=== PATIENT | female | born 1980 | race African-American/Black ===

== ENCOUNTER 2024-07-01 13:17 | Emergency (ER) | payer BC, OTHER ==
[~2024-07-01] VITALS: Ht 165.1 cm; Wt 104.2 kg
[~2024-07-01 13:17] MED LIST: ACET500T58 PO; AUG875T PO; PSEU120T2 PO
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
--- NOTE | 2024-07-01 16:03 | DVH ---
CHEST RADIOGRAPH Indication: sob Technique: Single frontal view of the chest was obtained Comparison: None FINDINGS: Lines and Tubes: None Lungs: No focal consolidation. Pleura: No effusion.No pneumothorax. Cardiomediastinal contours: Unremarkable Pulmonary vasculature: Within normal limits. Bones: No acute osseous abnormality. Fusion hardware in the cervical spine. IMPRESSION: 1. No acute cardiopulmonary disease. HS:Y
[2024-07-01 16:24] LABS: Basophils # (auto) 0 10 ^3/uL (0-0.2); Basophils % (auto) 0.6 % (0.0-2.0); Eosinophils # (auto) 0.2 10 ^3/uL (0-0.8); Hematocrit 39.1 % (36.0-46.0); Hemoglobin 12.8 g/dL (12.2-16.2); Lymphocytes % (auto) 27.5 % (10.0-50.0); Mean Corpuscular Hemoglobin 29.1 pg (28.0-32.0); Mean Corpuscular Hgb Conc. 32.6 g/dL (32.0-36.0); Mean Corpuscular Volume 89.2 fL (80.0-100.0); Monocytes # (auto) 0.7 10 ^3/uL (0-1.3); Monocytes % (auto) 10.1 % (0.0-12.0); Neutrophils # (auto) 4.3 10 ^3/uL (1.6-8.6); Neutrophils % (auto) 58.8 % (37.0-80.0); Nucleated Red Blood Cells % 0.1 %; Platelet Count (auto) 238 10^3/uL (140-450); Red Blood Cells 4.39 10^6/uL (4.0-5.20); Red Cell Distribution Width 12.9 % (11.8-14.3); White Blood Cell 7.3 10^3/uL (4.4-10.8)
[2024-07-01 16:35] LABS: Anion Gap 5 (5-15); Carbon Dioxide 26 mmol/L (20-31); Chloride 107 mmol/L (98-107); Potassium 4.4 mmol/L (3.5-5.1); Sodium 138 mmol/L (136-145)
[2024-07-01 16:36] LABS: Calcium 9.6 mg/dL (8.7-10.4)
[2024-07-01 16:41] LABS: BUN/Creatinine Ratio 14.9 (10.0-20.0); Blood Urea Nitrogen 11 mg/dL (9-23); Glucose 95 mg/dL (74-106)
[2024-07-01 19:07] LABS: Urine Bacteria None Seen /hpf (None Seen)
[2024-07-01 19:16] VITALS: BP 162/78; TEMP 97.9
[2024-07-01 19:21] LABS: Urine Blood 3+ /uL (Negative); Urine Clarity Clear (Clear); Urine Color Yellow (Yellow); Urine Mucus FEW (None Seen); Urine Protein, UAD 1+ (Negative); Urine Specific Gravity 1.035 (1.001-1.035); Urine Urobilinogen 4 mg/dL (Negative); Urine WBC 2 /hpf (0 - 5)
[2024-07-01 19:30] VITALS: PULSE 62; RESP 18; O2SAT 99
== END 2024-07-01 19:55 | disposition left against medical advice (07) ==
LOC: ER 13:17
DX: I16.1 Hypertensive emergency (principal); R07.89 Other chest pain; Z79.899 Other long term (current) drug therapy
CPT/HCPCS: 36415; 71045; 80048; 81001; 84484; 85025; 85379

== ENCOUNTER 2024-12-12 08:28 | Emergency (ER) | payer BC, OTHER ==
[~2024-12-12] VITALS: Ht 165.1 cm; Wt 106.1 kg
--- NOTE | 2024-12-12 09:00 | ED.PDOC ---
History of Present Illness HPI Comments 44-year-old female presents to the ER with prior surgical history of knee surgery and chief complaining of abdominal pain. Patient reports on initially having cramps in the right lower quadrant of the abdomen but has worsened into sharp right lower quadrant pain. Patient state on having pain during urination with also pressure to the rectal area two days ago. Denies chills, fever, N/V/D, SOB, CP. No other associated symptoms, modifiers, recent injuries or sick contacts present at this time. Time Seen by MD: 08:50 Primary Care Provider: UNKNOWN Reviewed Notes: Nurses Notes, Medications, Allergies Allergies: Coded Allergies: NO KNOWN ALLERGIES (Unverified , 10/12/23) Home Meds Active Scripts Cephalexin (KEFLEX CAPSULE) 250 Mg Cp, 250 MG PO QID for 5 Days, #20 BOTTLE Prov:SAY DAWN MD 12/12/24 Acetaminophen (Acetaminophen) 500 Mg Tab, 500 MG PO QIDPRN for 14 Days, #56 TAB 0 Refills Prov:KARINA ALCANTARA NP 10/12/23 Pseudoephedrine (Sudafed 12 Hour) 120 Mg Tab, 1 TAB PO BID for 30 Days, #60 TAB 0 Refills Prov:KARINA ALCANTARA NP 10/12/23 Amoxicillin & Pot Clavulanate (AUGMENTIN TABLET) 875 Mg Tb, 875 MG PO BID for 5 Days, #10 TAB 0 Refills Prov:KARINA ALCANTARA NP 10/12/23 Information Source: Patient Mode of Arrival: Ambulatory Severity: Moderate Timing: Days Duration: Since onset, Days Prehospital treatment: None Past Medical History PAST MEDICAL HISTORY: Denies Surgical History (Other): Knee surgery DATA ANALYST History: No Pertinent DATA ANALYST History Family History Family History: Reviewed,noncontributory to illness, Unknown Social History Smoker: Non-Smoker Alcohol: Denies ETOH Use Drugs: Denies Drug Use Lives In: Home Constitutional: denies: chills, diaphoresis, fatigue, fever, malaise, sweats, weakness, others EENTM: denies: blurred vision, double vision, ear bleeding, ear discharge, ear drainage, ear pain, ear ringing, eye pain, eye redness, hearing loss, mouth pain, mouth swelling, nasal discharge, nose bleeding, nose congestion, nose pain, photophobia, tearing, throat pain, throat swelling, voice changes, others Respiratory: denies: cough, hemoptysis, orthopnea, SOB at rest, shortness of breath, SOB with excertion, stridor, wheezing, others Cardiovascular: denies: chest pain, dizzy spells, diaphoresis, Dyspnea on exertion, edema, irregular heart beat, left arm pain, lightheadedness, palpitations, PND, syncope, others Gastrointestinal: reports: abdominal pain; denies: abdomen distended, blood streaked bowels, constipated, diarrhea, dysphagia, difficulty swallowing, hematemesis, melena, nausea, poor appetite, poor fluid intake, rectal bleeding, rectal pain, vomiting, others Genitourinary: reports: burning; denies: abnormal vagina bleeding, dyspareunia, dysuria, flank pain, frequency, hematuria, incontinence, pain, , vagina discharge, urgency, others Neurological: denies: dizziness, fainting, headache, left sided numbness, left sided weakness, numbness, paresthesia, pre-existing deficit, right sided numbness, right sided weakness, seizure, speech problems, tingling, tremors, weakness, others Musculoskeletal: denies: back pain, gout, joint pain, joint swelling, muscle pain, muscle stiffness, neck pain, others Integumetry: denies: bruises, change in color, change in hair/nails, dryness, laceration, lesions, lumps, rash, wounds, others Allergic/Immunocompromised: denies: Difficulty Healing, Frequent Infections, Hives, Itching, others Hematologic/Lymphatic: denies: anemia, blood clots, easy bleeding, easy bruisin g, swollen glands, others Endocrine: denies: excessive hunger, excessive sweating, excessive thirst, excessive urination, flushing, intolerance to cold, intolerance to heat, unexplained weight gain, unexplained weight loss, others Psychiatric: denies: anxiety, bipolar disorder, depression, hopeless, panic disorder, schizophrenia, sleepless, suicidal, others All Other Systems: Reviewed and Negative Physical Exam General Appearance: Moderate Distress, Normal HEENT: Normal ENT Inspection, Pharynx Normal, TMs Normal Neck: Full Range of Motion, Non-Tender, Normal, Normal Inspection Respiratory: Chest Non-Tender, Lungs Clear, No Accessory Muscle Use, No Respiratory Distress, Normal Breath Sounds Cardiovascular: No Edema, No JVD, No Murmur, No Gallop, Normal Peripheral Pulses, Regular Rate/Rhythm Breast Exam: Deferred Gastrointestinal: No Organomegaly, Non Tender, No Pulsatile Mass, Normal Bowel Sounds, Soft Genitalia: Deferred Pelvic: Deferred Rectal: Deferred Extremities: No calf tenderness, Normal capillary refill, Normal inspection, Normal range of motion, Non-tender, No pedal edema Musculoskeletal : Apperance: Normal Neurologic: Alert, food production manager II-XII nml as Tested, No Motor Deficits, Normal Affect, Normal Mood, No Sensory Deficits Cerebellar Function: Normal Reflexes: Normal Skin: Dry, Normal Color, Warm Peripheral Pulses: 3+ Radial (R), 3+ Radial (L) Lymphatic: No Adenopathy Was a procedure done? Was a procedure done?: No Differential Dx Considerations may include: Urinary tract infection Musculoskeletal pain X-Ray, Labs, Meds, VS Vital Signs Date Time Temp Pulse Resp B/P (MAP) Pulse Ox O2 Delivery O2 Flow Rate FiO2 12/12/24 10:46 98.2 62 21 152/97 (115) 98 98.2 12/12/24 10:46 62 21 98 Room Air 12/12/24 08:28 99.0 73 17 149/86 (107) 97 99.0 Lab Test 12/12/24 08:50 Range/Units Urine Color Yellow Yellow Urine Clarity Clear Clear Urine pH 6.5 5.0-9.0 Urine Specific Foreman 1.034 1.001-1.035 Urine Protein Trace H Negative Urine Ketones Negative Negative Urine Blood Negative Negative /uL Urine Nitrite Negative Negative Urine Bilirubin Negative Negative Urine Urobilinogen 3 H Negative mg/dL Urine Leukocyte Esterase Negative Negative /uL Urine RBC 2 0 - 4 /hpf Urine Microscopic WBC 1 0-5 /HPF Urine Squamous Epithelial Cells None seen <5 /hpf Urine Bacteria None seen None Seen /hpf Urine Mucus Few None Seen Urine Glucose Normal Normal mg/dL Current Medications Medications (Trade) Dose Ordered Sig/Celi Route Start Time Stop Time Status Last Admin Acetaminophen/ Hydrocodone Bitart ([place] 10/325MG Tab) 1 tab ONCE ONCE PO 12/12/24 09:30 12/12/24 09:31 DC 12/12/24 09:36 Patient alert. Vitals stable. No sign of distress. Answering questions. Abdomen is soft nontender. Ambulating without difficulty. Good skin color. No sign of sepsis. Heart rate within normal limits. Saturation pristine on room air. Physical examination pristine. CT scan of the abdomen was not done because physical examination was within normal limits. Urinalysis shows WBC. Possible early UTI. Was given prescription of Keflex antibiotic. Explained to the patient. Was told to follow up with her primary care physician. Was told to come back if there is any problem. Time of 1ST Reevaluation: 09:20 Reevaluation 1ST: Improved Patient Education/Counseling: Diagnosis, Treatment, Prognosis Family Education/Counseling: No Family Present Departure 1 Departure Time of Disposition: :28 Impression: Primary Impression: Urinary tract infection Qualified Codes: N30.00 - Acute cystitis without hematuria Additional Impression: Muscle strain Disposition: HOME / SELF CARE / HOMELESS Condition: Good e-Prescriptions Cephalexin (KEFLEX CAPSULE) 250 Mg Cp 250 MG PO QID for 5 Days, #20 BOTTLE Prov: SAY DAWN MD 12/12/24 Discharged With: Self Critical Care Note Critical Care Time?: No Stability Stability form required: No Heart Score Heart Score: Heart Score Response (Comments) Value History N/A 0 EKG N/A 0 Age N/A 0 Risk Factors N/A 0 Troponin N/A 0 Total 0 I personally scribed for SAY DAWN MD ([email or web address]) on 12/12/24 at 09:00. Electronically submitted by Rudy Davidson ([email or web address]). SAY DAWN MD Dec 12, 2024 09:00
[2024-12-12 09:06] LABS: Urine Bacteria None Seen /hpf (None Seen)
[2024-12-12 09:17] LABS: Urine Blood Negative /uL (Negative); Urine Clarity Clear (Clear); Urine Color Yellow (Yellow); Urine Mucus FEW (None Seen); Urine Protein, UAD TRACE (Negative); Urine Specific Gravity 1.034 (1.001-1.035); Urine Squamous Epithelial Cell None Seen /hpf (<5); Urine Urobilinogen 3 mg/dL (Negative); Urine WBC 1 /HPF (0-5); Urine pH 6.5 (5.0-9.0)
[2024-12-12] MEDS ORDERED: CEPH250C PO (09:29)
[2024-12-12] MEDS: HYDROcodone-ACET 10/325MG TAB PO ONE (09:36)
[2024-12-12 10:46] VITALS: BP 152/97; PULSE 62; RESP 21; TEMP 98.2; O2SAT 98
== END 2024-12-12 11:18 | disposition home or self-care (01) ==
LOC: ER 08:28
DX: T14.8XXA Other injury of unspecified body region, initial encounter (principal); N39.0 Urinary tract infection, site not specified; Z98.890 Other specified postprocedural states; Z79.899 Other long term (current) drug therapy; X58.XXXA Exposure to other specified factors, initial encounter; Y93.89 Activity, other specified; Y92.89 Other specified places as the place of occurrence of the external cause; Y99.8 Other external cause status
CPT/HCPCS: 81001

== ENCOUNTER 2024-12-30 18:15 | Emergency (ER) | payer BC ==
[~2024-12-30] VITALS: Ht 172.7 cm; Wt 107.4 kg
[~2024-12-30 18:15] MED LIST changes: +CEPH250C PO
[2024-12-30 18:16] VITALS: BP 146/91; PULSE 73; RESP 16; TEMP 97.5; O2SAT 96
[2024-12-30] MEDS ORDERED: DIP005TP EX (18:38)
--- NOTE | 2024-12-30 18:38 | ED.PDOC ---
History of Present Illness(SKN HPI Comments 44-year-old female Pt presents to ED with c/c of on and off rash since October. Admits to urticaria. Rash spreads from neck to abdomen to perineal area. Patient states follow up with her PCP in the past was prescribed Claritin in an unknown medication that begins with an IM she states no help with symptoms. Denies fever, chills, through swollen, difficulty breathing, chest pain, nausea or vomiting Chief Complaint: Rash Time Seen by MD: 18:23 Primary Care Provider: HUA History of Present Illness: Nurses Notes, Medications, Allergies Allergies: Coded Allergies: NO KNOWN ALLERGIES (Unverified , 10/12/23) Home Meds Active Scripts Betamethasone Dipropionate (Betamethasone Dipropionat) 0.05 % Cre, 1 APPLIC EX BID PRN for 14 Days, #15 GRAMS Prov:RAMY WILSON LOCOMOTIVE BOILERMAKER 12/30/24 Cephalexin (KEFLEX CAPSULE) 250 Mg Cp, 250 MG PO QID for 5 Days, #20 BOTTLE Prov:SAY DAWN MD 12/12/24 Acetaminophen (Acetaminophen) 500 Mg Tab, 500 MG PO QIDPRN for 14 Days, #56 TAB 0 Refills Prov:KARINA ALCANTARA NP 10/12/23 Pseudoephedrine (Sudafed 12 Hour) 120 Mg Tab, 1 TAB PO BID for 30 Days, #60 TAB 0 Refills Prov:KARINA ALCANTARA NP 10/12/23 Amoxicillin & Pot Clavulanate (AUGMENTIN TABLET) 875 Mg Tb, 875 MG PO BID for 5 Days, #10 TAB 0 Refills Prov:KARINA ALCANTARA NP 10/12/23 Past Medical History PAST MEDICAL HISTORY: Denies Surgical History: Denies all surgeries VENETIAN BLIND WASHER History: No Pertinent VENETIAN BLIND WASHER History Family History Family History: Reviewed,noncontributory to illness, Unknown Social History Smoker: Non-Smoker Alcohol: Denies ETOH Use Drugs: Denies Drug Use Lives In: Home Constitutional: denies: chills, diaphoresis, fatigue, fever, malaise, sweats, weakness, others EENTM: denies: blurred vision, double vision, ear bleeding, ear discharge, ear drainage, ear pain, ear ringing, eye pain, eye redness, hearing loss, mouth pain, mouth swelling, nasal discharge, nose bleeding, nose congestion, nose pain, photophobia, tearing, throat pain, throat swelling, voice changes, others Respiratory: denies: cough, hemoptysis, orthopnea, SOB at rest, shortness of breath, SOB with excertion, stridor, wheezing, others Cardiovascular: denies: chest pain, dizzy spells, diaphoresis, Dyspnea on exertion, edema, irregular heart beat, left arm pain, lightheadedness, palpitations, PND, syncope, others Gastrointestinal: denies: abdomen distended, abdominal pain, blood streaked bowels, constipated, diarrhea, dysphagia, difficulty swallowing, hematemesis, melena, nausea, poor appetite, poor fluid intake, rectal bleeding, rectal pain, vomiting, others Genitourinary: denies: abnormal vagina bleeding, burning, dyspareunia, dysuria, flank pain, frequency, hematuria, incontinence, pain, , vagina discharge, urgency, others Neurological: denies: dizziness, fainting, headache, left sided numbness, left sided weakness, numbness, paresthesia, pre-existing deficit, right sided numbness, right sided weakness, seizure, speech problems, tingling, tremors, weakness, others Musculoskeletal: denies: back pain, gout, joint pain, joint swelling, muscle pain, muscle stiffness, neck pain, others Integumetry: reports: rash; denies: bruises, change in color, change in hair/nails, dryness, laceration, lesions, lumps, wounds, others Allergic/Immunocompromised: denies: Difficulty Healing, Frequent Infections, Hives, Itching, others Hematologic/Lymphatic: denies: anemia, blood clots, easy bleeding, easy bruising, swollen glands, others Endocrine: denies: excessive hunger, excessive sweating, excessive thirst, excessive urination, flushing, intolerance to cold, intolerance to heat, unexplained weight gain, unexplained weight loss, others Psychiatric: denies: anxiety, bipolar disorder, depression, hopeless, panic disorder, schizophrenia, sleepless, suicidal, others Physical Exam General Appearance: No Apparent Distress, Normal HEENT: Pharynx Normal Neck: Full Range of Motion, Non-Tender Respiratory: Accessory Muscle Use, Chest Non-Tender, Lungs Clear, No Respiratory Distress, Normal Breath Sounds Cardiovascular: No Murmur, Normal Peripheral Pulses, Regular Rate/Rhythm Breast Exam: Deferred Gastrointestinal: Non Tender, Soft Genitalia: Deferred Pelvic: Deferred Rectal: Deferred Extremities: Normal range of motion Musculoskeletal : Apperance: Normal Neurologic: Alert, No Motor Deficits, Normal Affect, Normal Mood, No Sensory Deficits Cerebellar Function: Normal Reflexes: Normal Skin: Dry, Normal Color, Rash (Papular erythemic rash scattered diffusely excoriations open lesions no noted drainage), Warm Lymphatic: No Adenopathy Was a procedure done? Was a procedure done?: No Differential Diagnosis (INTG) Differential Diagnosis: Cellulitis Differential Diagnosis: Urticaria, Viral exanthema X-Ray, Labs, Meds, VS Vital Signs Date Time Temp Pulse Resp B/P (MAP) Pulse Ox O2 Delivery O2 Flow Rate FiO2 12/30/24 18:16 97.5 73 16 146/91 (109) 96 97.5 X-Ray, Labs, Meds, VS Comment Police secondary to patient's sweating it is likely heat rash. Based on physical exam and symptoms. We will start trial of steroid cream advised take medications as prescribed side effects discussed. Advised to use ice to the area, acosta powder in under garments that absorb sweat during the hot weather. Advised to follow up with her PCP 2-3 days as necessary ER return precautions given patient indicates understanding and agrees with discharge plan of care Time of 1ST Reevaluation: 18:15 Reevaluation 1ST: Unchanged Time of 2ND Reevaluation: 18:36 Reevaluation 2ND: Improved Patient Education/Counseling: Diagnosis, Treatment, Prognosis, Need For Follow Up Family Education/Counseling: No Family Present SEPSIS Sepsis Screen Vital Signs Date Time Temp Pulse Resp B/P (MAP) Pulse Ox O2 Delivery O2 Flow Rate FiO2 12/30/24 18:16 97.5 73 16 146/91 (109) 96 97.5 Departure 1 Departure Time of Disposition: 18:35 Impression: Primary Impression: Prickly heat Disposition: 01 HOME / SELF CARE / HOMELESS Condition: Stable e-Prescriptions Betamethasone Dipropionate (Betamethasone Dipropionat) 0.05 % Cre 1 APPLIC EX BID PRN for 14 Days, #15 GRAMS Prov: RAMY WILSON 12/30/24 Discharged With: Self Critical Care Note Critical Care Time?: No Stability Stability form required: RAMY Romero Dec 30, 2024 18:38
== END 2024-12-30 18:45 | disposition home or self-care (01) ==
LOC: ER 18:21
DX: L74.0 Miliaria rubra (principal)

== ENCOUNTER 2025-01-30 09:45 | Emergency (ER) | payer BC ==
[~2025-01-30] VITALS: Ht 165.1 cm; Wt 105.1 kg
--- NOTE | 2025-01-30 10:06 | ED.PDOC ---
Psychiatric HPI Comments 44 y/o F, with no prior psychiatric history presents to the ED for CC of mental health. Patient states, she has had increased stress at work d/t filling a complaint against her coworker resulting in her demotion and decline in mental health. Patient reports, since her complaint her job has retaliated against her causing her to be unable to eat or sleep. Patient states, "my health is deteriorating because of stress, I'm unable to do my daily activities, I want to take a break from work in order to rest". Patient endorses, wanting a psychiatric evaluation. Patient denies suicidal ideation, homicidal ideation, auditory hallucinations, or visual hallucinations. No other associated symptoms, modifiers, or recent injuries present at this time. Chief Complaint: Mental Health Time Seen by MD: 10:00 Primary Care Provider: HUA Jordan Notes: Nurses Notes, Medications, Allergies Information Source: Patient Severity: Able to Care for Self Severity of Pain: None Severity of Mental Status: Moderate Severity of Symptoms: Moderate Timing: Days Duration: Since onset Prehospital treatment: None Presents with: Depression Ingestion: None Circumstance: None Current substance abuse: None Stressors: Work History of: None Quality: None Location: None Location of pain or injury: None Associated signs and symptoms: Depression Past Medical History PAST MEDICAL HISTORY: HTN, Denies Surgical History: Denies all surgeries 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 Family History Family History: Reviewed,noncontributory to illness, Unknown Social History Smoker: Non-Smoker Alcohol: Denies ETOH Use Drugs: Denies Drug Use Lives In: Home Constitutional: denies: chills, diaphoresis, fatigue, fever, malaise, sweats, weakness, others EENTM: denies: blurred vision, double vision, ear bleeding, ear discharge, ear drainage, ear pain, ear ringing, eye pain, eye redness, hearing loss, mouth pain, mouth swelling, nasal discharge, nose bleeding, nose congestion, nose pain, photophobia, tearing, throat pain, throat swelling, voice changes, others Respiratory: denies: cough, hemoptysis, orthopnea, SOB at rest, shortness of breath, SOB with excertion, stridor, wheezing, others Cardiovascular: denies: chest pain, dizzy spells, diaphoresis, Dyspnea on exertion, edema, irregular heart beat, left arm pain, lightheadedness, palpitations, PND, syncope, others Gastrointestinal: denies: abdomen distended, abdominal pain, blood streaked bowels, constipated, diarrhea, dysphagia, difficulty swallowing, hematemesis, melena, nausea, poor appetite, poor fluid intake, rectal bleeding, rectal pain, vomiting, others Genitourinary: denies: abnormal vagina bleeding, burning, dyspareunia, dysuria, flank pain, frequency, hematuria, incontinence, pain, , vagina discharge, urgency, others Neurological: denies: dizziness, fainting, headache, left sided numbness, left sided weakness, numbness, paresthesia, pre-existing deficit, right sided numbness, right sided weakness, seizure, speech problems, tingling, tremors, weakness, others Musculoskeletal: denies: back pain, gout, joint pain, joint swelling, muscle pain, muscle stiffness, neck pain, others Integumetry: denies: bruises, change in color, change in hair/nails, dryness, laceration, lesions, lumps, rash, wounds, others Allergic/Immunocompromised: denies: Difficulty Healing, Frequent Infections, Hives, Itching, others Hematologic/Lymphatic: denies: anemia, blood clots, easy bleeding, easy bruising, swollen glands, others Endocrine: denies: excessive hunger, excessive sweating, excessive thirst, excessive urination, flushing, intolerance to cold, intolerance to heat, unexplained weight gain, unexplained weight loss, others Psychiatric: reports: anxiety, depression; denies: bipolar disorder, hopeless, panic disorder, schizophrenia, sleepless, suicidal, others All Other Systems: Reviewed and Negative Physical Exam General Appearance: Moderate Distress HEENT: Normal ENT Inspection, Pharynx Normal, TMs Normal Neck: Full Range of Motion, Non-Tender, Normal, Normal Inspection Respiratory: Chest Non-Tender, Lungs Clear, No Accessory Muscle Use, No Respiratory Distress, Normal Breath Sounds Cardiovascular: No Edema, No JVD, No Murmur, No Gallop, Normal Peripheral Pulses, Regular Rate/Rhythm Breast Exam: Deferred Gastrointestinal: No Organomegaly, Non Tender, No Pulsatile Mass, Normal Bowel Sounds, Soft Genitalia: Deferred Pelvic: Deferred Rectal: Deferred Extremities: No calf tenderness, Normal capillary refill, Normal inspection, Normal range of motion, Non-tender, No pedal edema Musculoskeletal : Apperance: Normal Neurologic: 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 Was a procedure done?: No Psych Differential Dx Psych. Differential Dx: Anxiety, Depression Intoxication Differential Dx: N/A X-Ray, Labs, Meds, VS Vital Signs Date Time Temp Pulse Resp B/P (MAP) Pulse Ox O2 Delivery O2 Flow Rate FiO2 01/30/25 10:15 98.3 73 17 182/99 (126) 100 98.3 01/30/25 09:45 98.3 73 17 169/108 (128) 100 98.3 Patient alert. Blood pressure elevated. Saturation pristine on room air. She is comfortable. She does have depression. Psychiatric evaluation. She is not taking her blood pressure medication. Anxious. Medically cleared. Denies suicidal or homicidal ideation. Explained to the patient. Continue to monitor. Time of 1ST Reevaluation: 10:30 Reevaluation 1ST: Improved Patient Education/Counseling: Diagnosis, Treatment Family Education/Counseling: No Family Present Departure 1 Departure Time of Disposition: 11:29 Impression: Primary Impression: Hypertensive urgency Additional Impression: Anxiety Disposition: 30 STILL A PATIENT Condition: Good Discharged With: Self Critical Care Note Critical Care Time?: No Stability Stability form required: No Heart Score Heart Score: Heart Score Response (Comments) Value History N/A 0 EKG N/A 0 Age N/A 0 Risk Factors N/A 0 Troponin N/A 0 Total 0 I personally scribed for SAY DAWN MD ([email or web address]) on 01/30/25 at 10:06. Electronically submitted by Felicita Le ([email or web address]). I personally scribed for SAY DAWN MD ([email or web address]) on 01/30/25 at 10:12. Electronically submitted by Felicita Le ([email or web address]). I personally scribed for SAY DAWN MD ([email or web address]) on 01/30/25 at 10:28. Electronically submitted by Felicita Le ([email or web address]). SAY DAWN MD Jan 30, 2025 10:06
--- NOTE | 2025-01-30 12:42 | DVHINCON2 ---
Date of Service if different f: Jan 30, 2025 Time of Service: 12:41 Consultation ([facility]) Vitals Vital Signs Date Time Temp Pulse Resp B/P (MAP) Pulse Ox O2 Delivery O2 Flow Rate FiO2 01/30/25 12:08 Room Air* 0 21 01/30/25 10:15 98.3 73 17 182/99 (126) 100 98.3 PSYCHIATRY CONSULTATION INITIAL EVALUATION REASON FOR CONSULT: Depressed, work stress. Is patient safe to discharge? HPI: 44yo W who presents to the ED voluntarily after going to a crisis center, then being told to come to the ED. Pt told the ED MD that she has been experiencing depressed mood due retaliation at work (getting extra work, was demoted). Pt also c/o diminished appetite, sleep disturbance. She denies SI, HI, hallucinations. Pt says she is making it. She was referred to the ED from [facility]. Pt is trying to get certified for SDI. She says things are getting worse due to work stress. Whenever she thinks about work, she gets worked up, anxious. This has been going on since November. Pt also says her blood pressure has been elevating. In addition to the above symptoms, pt c/o diminished energy and concentration, is having trouble getting things done at work. She reports guilt, embarrassment. She questions if something is wrong with her given she is usually able to work well. She complains of anxiety. Pt has a high priority position, fears she will make a grave mistake that will adversely impact her company. Pt denies SI, HI currently. She denies any history of SI, self-harm or suicide. She does have a ccess to a firearm. No family history of mental illness or suicide. Pt says she can keep herself safe if she is discharged. She is open to getting treatment. PSYCHIATRIC HISTORY: DIAGNOSIS: None prior ADMISSIONS: None prior MEDICATION TRIALS: None prior OUTPATIENT CARE: None prior THERAPY: Has had therapy in the past, last in [employer]. SI/SELF-INJURY/SUICIDE ATTEMPT: None prior SUBSTANCE USE: Drinks about twice a week. Uses cannabis daily, hopes to stop. RELEVANT MEDICAL HISTORY: HTN SOCIAL HISTORY: Graduated college. In relationship. No children. Lives alone with pup. ALLERGIES: None MENTAL STATUS EXAMINATION: Patient is appropriately groomed and dressed. Behavior is cooperative and calm, with no evidence of psychomotor agitation or retardation. Speech is normal in rate, tone, and volume. Mood is described as "stressed and anxious," and affect is congruent, anxious, and mildly constricted. Thought processes are linear, logical, and goal-directed. There is no evidence of psychosis, delusions, or hallucinations. She denies suicidal or homicidal ideation, plan, or intent. Insight and judgment are intact. Cognition appears grossly intact, although she reports diminished concentration. No abnormal movements or signs of intoxication are noted. DIFFERENTIAL DIAGNOSIS: Major Depressive Disorder, single episode, moderate, without psychotic features (ICD-10: F32.1) Adjustment Disorder with mixed anxiety and depressed mood (ICD-10: F43.23) Stressor is clearly identifiable (workplace retaliation/demotion) Generalized Anxiety Disorder (ICD-10: F41.1) ASSESSMENT: The patient is experiencing clinically significant symptoms of depression and anxiety, likely in response to chronic work-related stress. While she has no prior psychiatric diagnosis or treatment history, the duration and impact of symptomsincluding functional decline and fear of work-related consequencessupport the presence of a mood disorder. She denies suicidal ideation, intent, or plan, and demonstrates protective factors including in sight, willingness to engage in treatment, and stable housing. Therefore, a 5150 involuntary psychiatric hold is not indicated. Likewise, inpatient psychiatric hospitalization is not medically necessary at this time. The patient is voluntarily seeking support, demonstrates insight, and is amenable to outpatient follow-up. RECOMMENDATIONS: 1. Discharge to home with outpatient follow-up: The patient is psychiatrically stable for discharge and does not meet criteria for inpatient care or a 5150 hold. 2. Referral for outpatient psychotherapy: Patient was provided information regarding therapy options for mood and anxiety symptoms. Referral to a licensed therapist or psychologist for further evaluation and support is recommended. Provided information for [employer]. 3. Support with SDI/Work Leave: Patient expressed interest in obtaining certification for short-term disability (SDI) and needs further psychiatric evaluation for medical necessity of work leave. She was advised to schedule follow-up with an outpatient psychiatrist or primary care provider familiar with documentation needs for SDI. 4. Work Note: Patient was evaluated in the Emergency Department today for psychiatric concerns. A medical excuse note should be provided indicating her presence in the ED. 5. Monitor for Worsening Symptoms: Should mood worsen, or if suicidal thoughts emerge, patient should return to the ED or contact emergency psychiatric services. Provide crisis information, including [id number]. STALIN CASIANO MD Jan 30, 2025 12:42
[2025-01-30 15:12] VITALS: BP 150/8; PULSE 63; RESP 16; TEMP 98.2; O2SAT 100
== END 2025-01-30 15:16 | disposition home or self-care (01) ==
LOC: ER 09:49
DX: I16.0 Hypertensive urgency (principal); F41.9 Anxiety disorder, unspecified; Z56.6 Other physical and mental strain related to work; Z79.899 Other long term (current) drug therapy

== ENCOUNTER 2025-03-06 08:03 | Emergency (ER) | payer BC ==
[~2025-03-06] VITALS: Ht 165.1 cm; Wt 107.9 kg
[2025-03-06] MEDS ORDERED: PRED20TA2 PO (09:14)
[2025-03-06] MEDS ORDERED: CETI5TAB6 PO (09:14)
[2025-03-06] MEDS ORDERED: HYDR-3682 PO (09:14)
--- NOTE | 2025-03-06 09:20 | ED.PDOC ---
HPI Allergic reaction HPI Comments 44 year old female with a past medical history hypertension presents to the emergency with a chief complaint of rash onset 1 week. Patient has been experienced generalized rash for the past week, experienced similar symptoms about 2 months ago, was seen in this ED on 12/30/24. She has tried OTC medication, at home remedies with no improvement. Since last night, she noticed rash to bilateral upper arms and abdominal region worsened, came to ED. No other symptoms or modifying factors present at this time. Patient denies any fever, cough, difficulty swallowing, or shortness of breath Denies fever chills night sweats nausea vomiting diarrhea Denies persistent loss of appetite nor unintentional weight loss over the past 3 months Denies history of STI Denies cough and cold-like symptoms Denies recent travel Denies sick contact with similar rash Denies new topical creams/lotions/shampoos/detergents Denies noticing any insects Denies bruising bleeding anywhere Denies chronic skin issues or family history of skin issues Chief Complaint: Rash Time Seen by MD: 09:05 Primary Care Provider: UNKNOWN Reviewed Notes: Nurses Notes, Medications, Allergies Allergies: Coded Allergies: NO KNOWN ALLERGIES (Unverified , 10/12/23) Home Meds Active Scripts Cetirizine Hcl (Cetirizine Hcl) 5 Mg Tab, 10 MG PO DAILY for 30 Days, #60 TAB 0 Refills Prov:KARINA ALCANTARA NP 03/06/25 Hydroxyzine Hcl (Hydroxyzine Hcl) 25 Mg Tab, 1 TAB PO TIDPRN PRN for 10 Days, #30 TAB 0 Refills Prov:KARINA ALCANTARA NP 03/06/25 Prednisone (Prednisone) 20 Mg Tab, 40 MG PO DAILY for 5 Days, #10 TAB 0 Refills Prov:KARINA ALCANTARA NP 03/06/25 Cephalexin (KEFLEX CAPSULE) 250 Mg Cp, 250 MG PO QID for 5 Days, #20 BOTTLE Prov:SAY DAWN MD 12/12/24 Acetaminophen (Acetaminophen) 500 Mg Tab, 500 MG PO QIDPRN for 14 Days, #56 TAB 0 Refills Prov:KARINA ALCANTARA NP 10/12/23 Pseudoephedrine (Sudafed 12 Hour) 120 Mg Tab, 1 TAB PO BID for 30 Days, #60 TAB 0 Refills Prov:KARINA ALCANTARA NP 10/12/23 Amoxicillin & Pot Clavulanate (AUGMENTIN TABLET) 875 Mg Tb, 875 MG PO BID for 5 Days, #10 TAB 0 Refills Prov:KARINA ALCANTARA PHYSICAL METALLURGIST 10/12/23 Information Source: Patient Mode of Arrival: Ambulatory Severity: Moderate Timing: Weeks Duration: Intermittent Prehospital treatment: Other Location: Extremities Exposed to: Unknown Developed: Rash History of: None Past Medical History PAST MEDICAL HISTORY: HTN Surgical History (Other): knee surgery 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 Family History Family History: Reviewed,noncontributory to illness, Unknown Social History Smoker: Non-Smoker Alcohol: Denies ETOH Use Drugs: Denies Drug Use Lives In: Home All Other Systems: Reviewed and Negative (as per hpi) Physical Exam General Appearance: No Apparent Distress, Normal HEENT: Normal ENT Inspection, Pharynx Normal, TMs Normal Neck: Full Range of Motion, Non-Tender, Normal, Normal Inspection Respiratory: Chest Non-Tender, Lungs Clear, No Accessory Muscle Use, No Respiratory Distress, Normal Breath Sounds Cardiovascular: No Murmur, No Gallop, Regular Rate/Rhythm Breast Exam: Deferred Gastrointestinal: No Organomegaly, Non Tender, No Pulsatile Mass, Normal Bowel Sounds, Soft Genitalia: Deferred Pelvic: Deferred Rectal: Deferred Extremities: No calf tenderness, Normal capillary refill, Normal inspection, Normal range of motion, Non-tender, No pedal edema Musculoskeletal : Apperance: Normal 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 Was a procedure done?: No Differential diagnosis (all) Differential Diagnosis: Urticaria X-Ray, Labs, Meds, VS Vital Signs Date Time Temp Pulse Resp B/P (MAP) Pulse Ox O2 Delivery O2 Flow Rate FiO2 03/06/25 09:22 98.1 68 16 157/98 (117) 97 98.1 03/06/25 09:22 68 16 97 Room Air 03/06/25 08:05 98.1 69 18 156/95 96 98.1 X-Ray, Labs, Meds, VS Comment 44 year old female with a past medical history hypertension presents to the emergency with a chief complaint of rash onset 1 week. Patient arrives alert and oriented, ABC's intact, afebrile, vital signs stable, saturating well in room air Additional MDM Review of External, Non-ED records: External records reviewed. Discussion with independent historian (EMS, family) history obtained from the patient/parents (if applicable) at bedside Chronic conditions affecting care: None Social determinants of health affecting care: None Consideration of admission (observation or admission): I considered escalation of care to admission for this patient, however given the reassuring workup, the patient is safe for outpatient management. ion: On reevaluation, patient had symptomatic improvement. Patient is stable for discharge at this time. External notes reviewed. Test results and diagnostic imaging interpreted. All diagnostic findings, discharge care, education and instructions provided Follow-up with PCP in 2 to 3 days Patient verbalized understanding and agreed to treatment plan Vital signs stable, afebrile, no acute distress noted Patient ambulatory with strong steady gait Advised to return precautions for any new or worsening symptoms, return to ER immediately for re-evaluation Patient is aware that the purpose of this visit was for an acute medical emergency requiring emergent stabilization. Chronic conditions, including malignancies have not been ruled out. Patient is instructed to follow up with PCP as directed and discharge instructions for continued care and workup. If unable to arrange follow-up, patient is to return to the emergency department for reassessment. Patient (parent or legal guardian if applicable) was given verbal and written discharge instructions and acknowledges understanding. Time of 1ST Reevaluation: 09:35 Reevaluation 1ST: Improved Patient Education/Counseling: Diagnosis, Treatment Family Education/Counseling: No Family Present SEPSIS Sepsis Screen Date sepsis recognized/suspect: Mar 06, 2025 Time Sepsis recognized/suspect: 804 Recent Procedure: No On Antibiotic Therapy: No Respiratory Rate >20: No Heart Rate >90: No Temp<36 C (96.8 F) or >38.3 C: No SBP <90 or MAP <65 mmHG: No New Acute Mental Status Change: No Is the patient on CPAP, BIPAP,: No Vital Signs Date Time Temp Pulse Resp B/P (MAP) Pulse Ox O2 Delivery O2 Flow Rate FiO2 03/06/25 09:22 98.1 68 16 157/98 (117) 97 98.1 03/06/25 09:22 68 16 97 Room Air 03/06/25 08:05 98.1 69 18 156/95 96 98.1 Departure 1 Departure Time of Disposition: 09:16 Impression: Primary Impression: Urticaria Disposition: HOME / SELF CARE / HOMELESS Condition: Stable e-Prescriptions Cetirizine Hcl (Cetirizine Hcl) 5 Mg Tab 10 MG PO DAILY for 30 Days, #60 TAB 0 Refills Prov: KARINA ALCANTARA NP 03/06/25 Hydroxyzine Hcl (Hydroxyzine Hcl) 25 Mg Tab 1 TAB PO TIDPRN PRN for 10 Days, #30 TAB 0 Refills Prov: KARINA ALCANTARA NP 03/06/25 Prednisone (Prednisone) 20 Mg Tab 40 MG PO DAILY for 5 Days, #10 TAB 0 Refills Prov: KARINA ALCANTARA NP 03/06/25 Discharged With: Self Critical Care Note Critical Care Time?: No Stability Stability form required: No Heart Score Heart Score: Heart Score Response (Comments) Value History N/A 0 EKG N/A 0 Age N/A 0 Risk Factors N/A 0 Troponin N/A 0 Total 0 I personally scribed for KARINA ALCANTARA NP ([email or web address]) on 03/06/25 at 09:20. E lectronically submitted by Delaney Gastelum ([email or web address]). KARINA ALCANTARA NP Mar 06, 2025 09:20
[2025-03-06 09:22] VITALS: BP 157/98; PULSE 68; RESP 16; TEMP 98.1; O2SAT 97
[2025-03-06] MEDS ORDERED: ceFAZolin 2 GM/D5W50ml 50 ML IV ONE (10:26)
== END 2025-03-06 09:26 | disposition home or self-care (01) ==
LOC: ER 08:03
DX: L50.9 Urticaria, unspecified (principal); I10 Essential (primary) hypertension; Z79.899 Other long term (current) drug therapy; Z98.890 Other specified postprocedural states

== ENCOUNTER 2025-03-11 08:30 | Emergency (ER) | payer BC ==
[~2025-03-11] VITALS: Ht 165.1 cm; Wt 110.8 kg
[~2025-03-11 08:30] MED LIST changes: +CETI5TAB6 PO; +HYDR-3682 PO; +PRED20TA2 PO
--- NOTE | 2025-03-11 08:49 | ED.PDOC ---
History of Present Illness(SKN HPI Comments This is a 44 year old female presenting to the ED with chief complaint of rash. Patient reports that she has been experiencing a chronic rash to her bilateral arms and genital region since October. 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 Patient states that now she is experiencing burning urination due to the rash extending to her vaginal opening, causing pain and discomfort. Patient denies any vaginal discharge, hematuria, bleeding, or redness. Chief Complaint: Rash Time Seen by MD: 08:46 Primary Care Provider: UNKNOWN History of Present Illness: Nurses Notes, Medications, Allergies Allergies: Coded Allergies: NO KNOWN ALLERGIES (Unverified , 10/12/23) Home Meds Active Scripts Fluconazole (Fluconazole) 200 Mg Tab, 1 TAB PO DAILY for 14 Days, #14 TAB Prov:ALLEN MACARIO MD 03/11/25 Miconazole Nitrate (Miconazole) 2 % Cre, 2 % VA BID for 10 Days, #60 CRE Prov:ALLEN MACARIO MD 03/11/25 Cetirizine Hcl (Cetirizine Hcl) 5 Mg Tab, 10 MG PO DAILY for 30 Days, #60 TAB 0 Refills Prov:KARINA ALCANTARA NP 03/06/25 Hydroxyzine Hcl (Hydroxyzine Hcl) 25 Mg Tab, 1 TAB PO TIDPRN PRN for 10 Days, #30 TAB 0 Refills Prov:KARINA ALCANTARA NP 03/06/25 Prednisone (Prednisone) 20 Mg Tab, 40 MG PO DAILY for 5 Days, #10 TAB 0 Refills Prov:KARINA ALCANTARA NP 03/06/25 Cephalexin (KEFLEX CAPSULE) 250 Mg Cp, 250 MG PO QID for 5 Days, #20 BOTTLE Prov:SAY DAWN MD 12/12/24 Acetaminophen (Acetaminophen) 500 Mg Tab, 500 MG PO QIDPRN for 14 Days, #56 TAB 0 Refills Prov:KARINA ALCANTARA NP 10/12/23 Pseudoephedrine (Sudafed 12 Hour) 120 Mg Tab, 1 TAB PO BID for 30 Days, #60 TAB 0 Refills Prov:KARINA ALCANTARA NP 10/12/23 Amoxicillin & Pot Clavulanate (AUGMENTIN TABLET) 875 Mg Tb, 875 MG PO BID for 5 Days, #10 TAB 0 Refills Prov:KARINA ALCANTARA REYNALDO 10/12/23 Information Source: Patient Mode of Arrival: Ambulatory Severity: Moderate Timing: Months Duration: Since onset Prehospital treatment: None Location: Arm, Other (Genital region) Mechanism: Spontaneous Onset Developed: Pruritus, Rash Object: None Condition of Object: None Retained Foreign Body: No Past Medical History PAST MEDICAL HISTORY: HTN Surgical History: Denies all surgeries FOOD DEMONSTRATOR History: No Pertinent FOOD DEMONSTRATOR History Family History Family History: Reviewed,noncontributory to illness, Unknown Social History Smoker: Non-Smoker Alcohol: Denies ETOH Use Drugs: Denies Drug Use Lives In: Home Constitutional: denies: chills, diaphoresis, fatigue, fever, malaise, sweats, weakness, others EENTM: denies: blurred vision, double vision, ear bleeding, ear discharge, ear drainage, ear pain, ear ringing, eye pain, eye redness, hearing loss, mouth pain, mouth swelling, nasal discharge, nose bleeding, nose congestion, nose pain, photophobia, tearing, throat pain, throat swelling, voice changes, others Respiratory: denies: cough, hemoptysis, orthopnea, SOB at rest, shortness of breath, SOB with excertion, stridor, wheezing, others Cardiovascular: denies: chest pain, dizzy spells, diaphoresis, Dyspnea on exertion, edema, irregular heart beat, left arm pain, lightheadedness, palpitations, PND, syncope, others Gastrointestinal: denies: abdomen distended, abdominal pain, blood streaked bowels, constipated, diarrhea, dysphagia, difficulty swallowing, hematemesis, melena, nausea, poor appetite, poor fluid intake, rectal bleeding, rectal pain, vomiting, others Genitourinary: reports: dysuria; denies: abnormal vagina bleeding, burning, dyspareunia, flank pain, frequency, hematuria, incontinence, pain, , vagina discharge, urgency, others Neurological: denies: dizziness, fainting, headache, left sided numbness, left sided weakness, numbness, paresthesia, pre-existing deficit, right sided numbness, right sided weakness, seizure, speech problems, tingling, tremors, weakness, others Musculoskeletal: denies: back pain, gout, joint pain, joint swelling, muscle pain, muscle stiffness, neck pain, others Integumetry: denies: bruises, change in color, change in hair/nails, dryness, laceration, lesions, lumps, rash, wounds, others Allergic/Immunocompromised: reports: Itching; denies: Difficulty Healing, Frequent Infections, Hives, others Hematologic/Lymphatic: denies: anemia, blood clots, easy bleeding, easy bruising, swollen glands, others Endocrine: denies: excessive hunger, excessive sweating, excessive thirst, excessive urination, flushing, intolerance to cold, intolerance to heat, unexplained weight gain, unexplained weight loss, others Psychiatric: denies: anxiety, bipolar disorder, depression, hopeless, panic disorder, schizophrenia, sleepless, suicidal, others All Other Systems: Reviewed and Negative Physical Exam General Appearance: Mild Distress, Obese HEENT: Normal ENT Inspection, Pharynx Normal, TMs Normal Neck: Full Range of Motion, Non-Tender, Normal, Normal Inspection Respiratory: Chest Non-Tender, Lungs Clear, No Accessory Muscle Use, No Respiratory Distress, Normal Breath Sounds Cardiovascular: No Edema, No JVD, No Murmur, No Gallop, Normal Peripheral Pulses, Regular Rate/Rhythm Breast Exam: Deferred Gastrointestinal: No Organomegaly, Non Tender, No Pulsatile Mass, Normal Bowel Sounds, Soft Genitalia: Deferred Pelvic: Other (Extensive tinea cruris) Rectal: Deferred Extremities: No calf tenderness, Normal capillary refill, Normal inspection, Normal range of motion, Non-tender, No pedal edema Neurologic: Alert, barrow worker II-XII nml as Tested, No Motor Deficits, Normal Affect, Normal Mood, No Sensory Deficits Cerebellar Function: Normal Reflexes: Normal Skin: Dry, Normal Color, Warm Peripheral Pulses: 1+ carotid (R), 1+ carotid (L) Lymphatic: No Adenopathy Was a procedure done? Was a procedure done?: No X-Ray, Labs, Meds, VS Vital Signs Date Time Temp Pulse Resp B/P (MAP) Pulse Ox O2 Delivery O2 Flow Rate FiO2 03/11/25 09:01 70 18 99 Room Air* 0 21 03/11/25 09:01 98.8 18 70 168/96 (120) 99 98.8 03/11/25 08:31 98.4 69 18 157/95 96 98.4 Time of 1ST Reevaluation: 09:00 Reevaluation 1ST: Unchanged Patient Education/Counseling: Diagnosis, Treatment Family Education/Counseling: No Family Present SEPSIS Sepsis Screen Date sepsis recognized/suspect: Mar 11, 2025 Time Sepsis recognized/suspect: 832 Recent Procedure: No On Antibiotic Therapy: No Respiratory Rate >20: No Heart Rate >90: No Temp<36 C (96.8 F) or >38.3 C: No SBP <90 or MAP <65 mmHG: No New Acute Mental Status Change: No Is the patient on CPAP, BIPAP,: No Vital Signs Date Time Temp Pulse Resp B/P (MAP) Pulse Ox O2 Delivery O2 Flow Rate FiO2 03/11/25 09:01 70 18 99 Room Air* 0 21 03/11/25 09:01 98.8 18 70 168/96 (120) 99 98.8 03/11/25 08:31 98.4 69 18 157/95 96 98.4 Departure 1 Departure Time of Disposition: 09:29 Impression: Primary Impression: Tinea cruris Disposition: HOME / SELF CARE / HOMELESS Condition: Fair Additional Instructions: Keep the area dry and clean with the bonsai culturist e-Prescriptions Fluconazole (Fluconazole) 200 Mg Tab 1 TAB PO DAILY for 14 Days, #14 TAB Prov: ALLEN MACARIO MD 03/11/25 Miconazole Nitrate (Miconazole) 2 % Cre 2 % VA BID for 10 Days, #60 CRE Prov: ALLEN MACARIO MD 03/11/25 Discharged With: Self Critical Care Note Critical Care Time?: No Stability Stability form required: No Heart Score Heart Score: Heart Score Response (Comments) Value History N/A 0 EKG N/A 0 Age <45 0 Risk Factors No known risk factors 0 Troponin N/A 0 Total 0 I personally scribed for ALLEN MACARIO MD ([email or web address]) on 03/11/25 at 08:49. Electronically submitted by Ariel Xiao ([email or web address]). ALLEN MACARIO MD Mar 11, 2025 08:49
[2025-03-11 09:01] VITALS: BP 168/96; PULSE 70; RESP 18; TEMP 98.8; O2SAT 99
[2025-03-11] MEDS ORDERED: [UNRECOGNIZED DRUG - CODE] VA (09:39)
[2025-03-11] MEDS ORDERED: FLUC200T50 PO (09:39)
== END 2025-03-11 09:46 | disposition home or self-care (01) ==
LOC: ER 08:30
DX: B35.6 Tinea cruris (principal); I10 Essential (primary) hypertension; Z79.899 Other long term (current) drug therapy